=== PATIENT | male | born 1950 | race Caucasian/White ===

== ENCOUNTER 2016-09-28 10:14 | Day surgery (SDC) | payer MEDICARE, OTHER ==
[~2016-09-28] VITALS: Ht 175.3 cm; Wt 84.7 kg
[~2016-09-28 10:14] MED LIST: 0.9% Sodium Chloride 1,000 ML IV SCH; ASPI-973 PO; SILD100T PO; Sodium Chloride LOK Flush 10 mL Syringe IV PRN; fentaNYL-PF 50 mCg/mL 2 mL Inj IVPUSH PRN
[2016-09-28 10:30] VITALS: BP 124/79; PULSE 63; RESP 16; O2SAT 98
[2016-09-28 11:45] VITALS: BP 109/73; PULSE 63; RESP 16; O2SAT 98
[2016-09-28 11:52] VITALS: BP 109/73; PULSE 63; RESP 14; O2SAT 98
[2016-09-28 11:54] VITALS: BP 105/80; PULSE 73; RESP 14; O2SAT 98
--- NOTE | 2016-09-28 15:47 | ENDO ---
[address] [address] ENDOSCOPY PROCEDURE PATIENT: MARY SOLIZ : 1950 MR#: [id number] ADMIT: 09/28/2016 JOB ID: [id number] PRIMARY PROVIDER: Saul Dallas MD. PROCEDURE: A colonoscopy with hot snare polypectomy. INDICATIONS: A 66-year-old male with a personal history of colon polyps, returning for surveillance. EQUIPMENT: PCF-H180 AL. SEDATION: Two mg Versed, 50 mcg fentanyl. COMPLICATIONS: None identified. BOWEL PREPARATION: Fair. Adequate exam. PROCEDURE INFORMATION: After the risks and benefits were explained, written and verbal informed consent was obtained. Sedation was applied as above. A digital rectal examination was accomplished. Mild internal hemorrhoids noted. The scope was introduced into the rectum and advanced under direct visualization to the level of the cecum, as identified by the appendiceal orifice and ileocecal valve. The scope was slowly withdrawn to carefully examine the mucosa for any defects or lesions. Retroflexed views were accomplished in the rectum. The colon was decompressed. The scope removed from the patient who tolerated the procedure well. FINDINGS: In the descending colon, there was a small, 5 mm polyp removed with hot snare. In the left colon, there were scattered diverticula. Retroflexed views from within the rectum were unremarkable. No other significant pathology was appreciated throughout. ENDOSCOPIC DIAGNOSES: 1. Colon polyp. 2. Diverticulosis. 3. Hemorrhoids. RECOMMENDATIONS: 1. Await histopathology. 2. Repeat colonoscopy in five years. CC: Saul Dallas MD.
--- NOTE | 2016-09-29 14:09 | PATH ---
SURGICAL PATHOLOGY Attending Physician:Jeyson Galan CASE STATUS: Signed Out PATIENT NAME: MARY SOLIZ PID: [id number] : 1950 DATE COLLECTED:09/28/2016 22:34 SPECIMEN: Colon, Biopsy CLINICAL HISTORY: 1). DESCENDING COLON POLYP FINAL DIAGNOSIS: Descending Colon Polyp: Tubular adenoma. ICD10: D12.4 GROSS DESCRIPTION: The specimen is received in one formalin filled container labeled with the patient's name, sublabeled "descending colon polyp" and consists of a 0.3 x 0.2 x 0.2 CM portion of tissue which is entirely submitted in one cassette. 09/28/2016 [facility] ICD-9 CODES: CPT CODES: 1: 01728 Electronically Signed Out Yordan Lion MD [facility] Pathology [facility] [address], [place] [address] Technical component performed at [facility] [address], [address]
== END 2016-09-28 23:59 | disposition home or self-care (01) ==
LOC: END 10:14
PROVIDERS: ATTEND Internal Medicine Gastroenterology
DX: Z12.11 Encounter for screening for malignant neoplasm of colon (principal); D12.4 Benign neoplasm of descending colon; K57.30 Diverticulosis of large intestine without perforation or abscess without bleeding; K64.8 Other hemorrhoids; Z86.010 Personal history of colon polyps; Z83.71 Family history of colonic polyps; E78.00 Pure hypercholesterolemia, unspecified; K21.9 Gastro-esophageal reflux disease without esophagitis; F12.90 Cannabis use, unspecified, uncomplicated; Z79.82 Long term (current) use of aspirin
CPT/HCPCS: 45385; J2250; J7030